=== PATIENT | female | born 1980 | race Caucasian/White ===

== ENCOUNTER → 2020-08-20 | Outpatient (CLI) | payer BC ==
[~2020-08-20] MED LIST: CELEXA40 MG PO; CYMBALTA60 MG; DOXYCYCLINE 10100 MG PO; IMITREX100 MG; NORCO 5-325 TA1 EACH PO; ONDANSETRON HCL4 M2 PO; TOPAMAX100 MG PO
== END ==
LOC: M.NUC 08-12 14:36
PROVIDERS: ATTEND Internal Medicine Gastroenterology
DX: R16.1 Splenomegaly, not elsewhere classified (principal); K59.00 Constipation, unspecified

== ENCOUNTER → 2020-12-26 | Outpatient (CLI) | payer BC | LOC: M.ULTRA 07:30 | PROVIDERS: ATTEND Registered Nurse Diabetes Educator | DX: E04.2 Nontoxic multinodular goiter (principal) ==

== ENCOUNTER → 2021-12-21 | Outpatient (CLI) | payer BC | LOC: M.RAD 13:46 | PROVIDERS: ATTEND Registered Nurse Diabetes Educator | DX: E04.2 Nontoxic multinodular goiter (principal); N64.4 Mastodynia; Z98.82 Breast implant status ==